=== PATIENT | female | born 1955 | race Caucasian/White ===

== ENCOUNTER → 2020-11-30 | Outpatient (CLI) | payer MEDICARE | LOC: EXRD 10:30 | DX: M81.0 Age-related osteoporosis without current pathological fracture (principal) | CPT/HCPCS: 77080 ==

== ENCOUNTER 2021-05-24 11:10 | Emergency (ER) | payer MEDICARE ==
[2021-05-24] MEDS ORDERED: ZOFRAN ODT 4 MG4 MG SL (13:40)
== END 2021-05-24 13:47 | disposition home or self-care (01) ==
LOC: ER1 11:10
DX: U07.1 COVID-19 (principal)
CPT/HCPCS: 93005; 99284; U0002